=== PATIENT | female | born 1965 | race Caucasian/White ===

== ENCOUNTER 2018-04-13 08:11 | Emergency (ER) | payer OTHER ==
[~2018-04-13] VITALS: Ht 157.5 cm; Wt 63.5 kg
[~2018-04-13 08:11] MED LIST: ACET325 PO; ALBU4; ALBU90OI6 INH; ALPR.5 PO; Albenza200 MG PO; Bactrim Ds Tab1 EACH PO; CIPR500 PO; DIAZ10 PO; DIAZ5 PO; DIPH50 PO; ESTR2 PO; Estradiol1 MG PO; GABA300T24 PO; HYDACE10B PO; IBUP400 PO; IBUP800 PO; Keflex500 MG PO; LIDOPIN28 GM TP; LORA.5 PO; METCAR500 PO; METH10 PO; METH40 PO; NAPR500 PO; NICO21TP TOP; Naprosyn500 MG PO; OXYC15ER PO; OXYC40ER PO; OXYC5 PO; PARO25; PARO25 PO; PHENA200 PO; QUET25 PO; SIMV5; SIMV5 PO; SULTRIDS PO; TRAACE PO; TRAM50 PO; TRAZ50 PO
[2018-04-13] MEDS ORDERED: METHADONE PO (09:35)
== END 2018-04-13 09:47 | disposition home or self-care (01) ==
LOC: ER 08:11
DX: J06.9 Acute upper respiratory infection, unspecified (principal); Z88.8 Allergy status to other drugs, medicaments and biological substances; Z79.899 Other long term (current) drug therapy; F31.9 Bipolar disorder, unspecified; F17.210 Nicotine dependence, cigarettes, uncomplicated
CPT/HCPCS: 99283

== ENCOUNTER → 2019-04-11 | Outpatient (CLI) | payer OTHER ==
[~2019-04-11] MED LIST changes: +METHADONE PO
[2019-04-25 14:42] LABS: Stool Occult Bld Immuno 1 Negative (NEGATIVE)
== END | disposition home or self-care (01) ==
LOC: LAB SHORT 04-09 16:42 → LAB 16:42 → LAB FUT 12-26 13:20
PROVIDERS: Nurse Practitioner Family
DX: Z12.11 Encounter for screening for malignant neoplasm of colon (principal)
CPT/HCPCS: G0328

== ENCOUNTER → 2023-07-13 | Outpatient (CLI) | payer OTHER | LOC: LAB 18:29 → LAB SHORT 18:29 | DX: R35.0 Frequency of micturition (principal) | CPT/HCPCS: 87086 ==